=== PATIENT | female | born 1945 | race Caucasian/White ===

== ENCOUNTER → 2017-11-23 08:23 | Outpatient (CLI) | payer MEDICARE, SELFPAY ==
[2017-11-23 08:43] LABS: Red Blood Count 4.74 M/mm3 (4.20-5.40); White Blood Count 6.2 K/mm3 (4.8-10.8)
[2017-11-23 08:44] LABS: Basophils % 0.6 % (0.1-2.0); Eosinophils # 0.1 K/mm3 (0.0-0.4); Hematocrit 39.4 % (37.0-47.0); Lymphocytes % 34.5 K/mm3 (10-50); Mean Corpuscular HGB Conc 30.5 g/dL (31.8-35.4); Mean Corpuscular Hemoglobin 25.3 pg (27.0-31.2); Mean Corpuscular Volume 83.1 fl (81-99); Mean Platelet Volume 8.3 fl (7.4-10.4); Monocytes # 0.4 K/mm3 (0.1-1.0); Neutrophils # 3.5 K/mm3 (1.8-7.8); Neutrophils % 55.9 % (37.0-80.0); Platelet Count 253 K/mm3 (142-424); Red Cell Distribution Width 14.3 % (11.5-17.5)
[2017-11-23 10:26] LABS: Anion Gap 12.1 mEq/L (5-15); Blood Urea Nitrogen 25 mg/dL (7-18); Carbon Dioxide 29 mmol/L (21.0-32.0); Chloride 106 mmol/L (98-107); Creatinine,Serum 0.79 mg/dL (0.55-1.02); Estimated Glomerular Filt Rate 71 ml/min (>60); GFR (African American) 86 ML/MIN (>60); Glucose 117 mg/dL (74-106); Potassium 4.1 mmoL/L (3.5-5.1); Sodium 143 mmol/L (136-145)
== END ==
PROVIDERS: PCP Physician Assistant; Visit Provider Otolaryngology
DX: Z01.818 Encounter for other preprocedural examination (principal); C76.0 Malignant neoplasm of head, face and neck
CPT/HCPCS: 36415; 80048; 85025; 93005

== ENCOUNTER 2017-11-30 07:59 | Day surgery (SDC) | payer MEDICARE, SELFPAY ==
[2017-11-23 08:53] VITALS: BMI 36.9
[2017-11-30 08:32] VITALS: BP 155/73; PULSE 62; RESP 18; TEMP 36.4; O2SAT 94
--- NOTE | 2017-11-30 08:36 | HMH.ANESCL ---
[facility] Anesthesia Checklist - Patient Identification Patient Identification: Arm Band - Structural Data Admitted From: Home Planned Operative Procedure/s: excision neoplasm nose Consent for Planned Operative Procedure(s) Verified: Yes Verified Documents: Surgical Consent, History and Physical - NPO Status Verified Time NPO: 00:00 - Additional verifications Anesthesia Reactions: No - Airway Assessment C-Spine Mobility Assessed: Yes (mp2) TMJ Mobility Assessed: Yes Dentition: Good Dentition - Neurological Assessment Level of Consciousness: Awake, Alert - Anesthesia Plan Anesthesia Risk discussed: Yes Anesthesia Plan: Verified ASA Class: II Anesthesia Type: MAC [facility] Anesthesia HX I have reviewed the patient's past medical history: Yes Medical History: Reports:: Hypertension Denies:: Cancer, Diabetes Mellitus Type 1, Diabetes Mellitus Type 2, MRSA, Seizures Other Medical History: Reports: Hypothyroidism. Denies: Blood Transfusion Reaction Other Surgeries: Yes: Colonoscopy, Hysterectomy-Total Amputation: No Fractures: No *Family Hx:: Asthma, Hypertension
--- NOTE | 2017-11-30 08:41 | P.PN_ITS ---
[facility] Anesthesia Checklist - Patient Identification Patient Identification: Arm Band - Structural Data Admitted From: Home Planned Operative Procedure/s: excision neoplasm nose Consent for Planned Operative Procedure(s) Verified: Yes Verified Documents: Surgical Consent, History and Physical - NPO Status Verified Time NPO: 00:00 - Additional verifications Anesthesia Reactions: No - Airway Assessment C-Spine Mobility Assessed: Yes (mp2) TMJ Mobility Assessed: Yes Dentition: Good Dentition - Neurological Assessment Level of Consciousness: Awake, Alert - Anesthesia Plan Anesthesia Risk discussed: Yes Anesthesia Plan: Verified ASA Class: II Anesthesia Type: MAC [facility] Anesthesia HX I have reviewed the patient's past medical history: Yes Medical History: Reports:: Hypertension Denies:: Cancer, Diabetes Mellitus Type 1, Diabetes Mellitus Type 2, MRSA, Seizures Other Medical History: Reports: Hypothyroidism. Denies: Blood Transfusion Reaction Other Surgeries: Yes: Colonoscopy, Hysterectomy-Total Amputation: No Fractures: No *Family Hx:: Asthma, Hypertension
[2017-11-30 11:06] VITALS: BP 128/82; PULSE 60; RESP 18; TEMP 37.1; O2SAT 91
[2017-11-30 11:11] VITALS: BP 148/82; PULSE 62; RESP 18; O2SAT 91
[2017-11-30 11:13] VITALS: BP 138/73; PULSE 63; RESP 18; O2SAT 91
--- NOTE | 2017-11-30 17:27 | HMH.OPNOTE ---
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 The perilesional area was infiltrated with 2 cc of 2% lidocaine containing epinephrine. The markup was incised and the lesion was excised to the level of the lower lateral cartilage. Bleeding was stopped with bipolar cautery blood loss was less than 5 cc. An inferior and superior release was done to facilitate a tissue rearrangement geometric plastic repair using 5-0 nylon sutures. A Dermabond dressing was applied. Condition: stable Disposition: same day Complications:: none
--- NOTE | 2017-11-30 17:30 | P.OP_ITS ---
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 The perilesional area was infiltrated with 2 cc of 2% lidocaine containing epinephrine. The markup was incised and the lesion was excised to the level of the lower lateral cartilage. Bleeding was stopped with bipolar cautery blood loss was less than 5 cc. An inferior and superior release was done to facilitate a tissue rearrangement geometric plastic repair using 5-0 nylon sutures. A Dermabond dressing was applied. Condition: stable Disposition: same day Complications:: none
== END 2017-11-30 09:45 | disposition home or self-care (01) ==
LOC: OR 08:01
PROVIDERS: Family Provider Emergency Medicine; PCP Physician Assistant; Visit Provider Otolaryngology
DX: C44.301 Unspecified malignant neoplasm of skin of nose (principal)
CPT/HCPCS: 14060; 88305; 96374; 96375

== ENCOUNTER → 2018-04-18 08:40 | Outpatient (REF) | payer MEDICARE, SELFPAY ==
[2018-04-18 13:36] LABS: Basophils % 0.6 % (0.1-2.0); Eosinophils # 0.2 K/mm3 (0.0-0.4); Eosinophils % 2.6 % (0.1-12.0); Hematocrit 39.5 % (37.0-47.0); Hemoglobin 11.2 g/dL (12.2-16.2); Lymphocytes # 1.8 K/mm3 (0.7-4.5); Lymphocytes % 30.5 K/mm3 (10-50); Mean Corpuscular HGB Conc 28.4 g/dL (31.8-35.4); Mean Corpuscular Hemoglobin 23.6 pg (27.0-31.2); Mean Corpuscular Volume 83.2 fl (81-99); Mean Platelet Volume 9.2 fl (7.4-10.4); Monocytes # 0.5 K/mm3 (0.1-1.0); Monocytes % 7.6 % (1.7-9.3); Neutrophils # 3.5 K/mm3 (1.8-7.8); Neutrophils % 58.7 % (37.0-80.0); Platelet Count 296 K/mm3 (142-424); Red Blood Count 4.74 M/mm3 (4.20-5.40); Red Cell Distribution Width 15.2 % (11.5-17.5); White Blood Count 5.9 K/mm3 (4.8-10.8)
[2018-04-18 14:01] LABS: Alanine Aminotransferase 61 U/L (12-78); Albumin Level 3.8 gm/dL (3.4-5.0); Albumin/Globulin Ratio 1.1 (1.1-1.8); Alkaline Phosphatase 46 U/L (46-116); Anion Gap 12.3 mEq/L (5-15); Aspartate Amino Transferase 43 U/L (15-37); Bilirubin,Total 0.5 mg/dL (0.2-1.0); Blood Urea Nitrogen 25 mg/dL (7-18); Carbon Dioxide 28 mmol/L (21.0-32.0); Chloride 107 mmol/L (98-107); Creatinine,Serum 0.83 mg/dL (0.55-1.02); Estimated Glomerular Filt Rate 67 ml/min (>60); GFR (African American) 81 ML/MIN (>60); Globulin 3.4 gm/dl (1.3-3.2); Glucose 132 mg/dL (74-106); Potassium 4.3 mmoL/L (3.5-5.1); Sodium 143 mmol/L (136-145); T4 (Thyroxine) 9.6 ug/dl (4.7-13.3); Thyroid Stimulating Hormone 0.43 uIU/ml (0.358-3.740); Total Protein,Serum 7.2 gm/dL (6.4-8.2)
== END ==
LOC: LAB 08:40
PROVIDERS: Visit Provider Physician Assistant
DX: R32 Unspecified urinary incontinence (principal); R53.83 Other fatigue
CPT/HCPCS: 80053; 84436; 84443; 85025

== ENCOUNTER → 2018-07-23 13:00 | Outpatient (CLI) | payer MEDICARE, SELFPAY ==
[2018-07-23 13:37] LABS: Basophils % 0.5 % (0.1-2.0); Eosinophils # 0.1 K/mm3 (0.0-0.4); Eosinophils % 1.8 % (0.1-12.0); Hemoglobin 10.9 g/dL (12.2-16.2); Lymphocytes # 1.9 K/mm3 (0.7-4.5); Lymphocytes % 29.6 K/mm3 (10-50); Mean Corpuscular HGB Conc 29.3 g/dL (31.8-35.4); Mean Corpuscular Hemoglobin 23.9 pg (27.0-31.2); Mean Corpuscular Volume 81.6 fl (81-99); Mean Platelet Volume 7.9 fl (7.4-10.4); Monocytes # 0.5 K/mm3 (0.1-1.0); Monocytes % 7.2 % (1.7-9.3); Neutrophils # 3.9 K/mm3 (1.8-7.8); Platelet Count 321 K/mm3 (142-424); Red Blood Count 4.53 M/mm3 (4.20-5.40); Red Cell Distribution Width 16.9 % (11.5-17.5); White Blood Count 6.3 K/mm3 (4.8-10.8)
[2018-07-23 14:40] LABS: Ferritin 22 ng/mL (8-388)
[2018-07-24 08:25] LABS: Iron 27 ug/dL (27-139); UIBC 361 ug/dL (118-369)
[2018-07-24 13:56] LABS: Iron Saturation 7 % (15-55)
[2018-07-25 13:05] LABS: Peripheral Smear Review Scanned Result
== END ==
PROVIDERS: PCP Physician Assistant; Visit Provider Physician Assistant
DX: D50.9 Iron deficiency anemia, unspecified (principal); R53.83 Other fatigue
CPT/HCPCS: 36415; 82728; 83540; 83550; 85025; 85060

== ENCOUNTER → 2018-10-25 12:13 | Outpatient (CLI) | payer MEDICARE, SELFPAY ==
--- NOTE | 2018-10-25 12:18 | XR_ITS ---
EXAM: XR lumbar spine min 4V HISTORY: ITS.REASON: pain ORDERING PHYSICIAN: Morelia Merritt PATIENT AGE: 73 years COMPARISON: None FINDINGS: There is slightly accentuated lordotic curvature at the lumbosacral junction. A line drawn perpendicular from the body of L3 falls anterior to the sacrum and this is a finding combined with the lordotic curvature suggesting possible instability of the lower lumbar spine. No fracture or dislocation. No lytic or blastic change. Is mild multilevel degenerative changes with disc space narrowing at all levels lumbar spine.. There is minimal posterior osteophytic spurring at the L 34 and L4-5 levels. There is no pars defect. There are hypertrophic facet changes at levels L3-4 through L5-S1 IMPRESSION: Accentuated lumbar lordosis with mild to moderate multilevel degenerative changes
[2018-10-25 15:06] LABS: Erythrocyte Sedimentation Rate 7 mm/hr (0-30)
[2018-10-25 15:12] LABS: C-Reactive Protein < 0.2 mg/L (0.0-0.9)
== END ==
PROVIDERS: PCP Emergency Medicine; Visit Provider Nurse Practitioner Family
DX: M54.9 Dorsalgia, unspecified (principal)
CPT/HCPCS: 36415; 72110; 85651; 86140

== ENCOUNTER 2018-11-04 08:45 | Outpatient (RCR) | payer MEDICARE, SELFPAY ==
--- NOTE | 2018-11-04 09:43 | HMH.PTOPEV ---
PT Outpatient Evaluation Rehab PT Outpatient Evaluation Start: 11/04/18 09:30 Freq: Status: Active Protocol: Document 11/04/18 09:30 OLVINANGIE (Rec: 11/04/18 09:43 OLVINANGIE [id number]) Electronically Signed By Sher Holland, PT 11/04/18 09:30 Outpatient Therapy Subjective History Subjective History This is the initial Physical Therapy evaluation for Jeannette Mendoza. Pt is a 73 y/o female referred to PT for c/o BLE pain. Pt reports insidious onset of pain ~ 2-3 weeks ago. Pt reprots that pain is usually in the evening when she tries to go to bed. Pt reports she had steroid shot and pain shot ~ 9 days ago and has been S&S free since. Pt Did report she was limited in activity by MD for surgical precautions for ~ 5 weeks and was recently released to full activity and this is when pain began. Chief Complaint Pain Symptom Type Ache Throb Symptoms Relieved By Nothing Symptoms Aggravated By Prone Supine Prior Functional Limitations None Current Functional Limitations Sleeping Symptom Description Intermittent Level of pain today (0-10) 0 Pain scale - at its best (0-10) 0 Pain scale - at its worst (0-10) 8 Lumbopelvic Eval Posture Thoracic Spine Posture Standing Position Flattened Lumbar Spine Posture Standing Position Flattened Assistive device Assistive Devices None / NA Gait Observation General Gait Pattern Observation No Deviations/Normal Palapation tenderness bilateral thoracic spinal tenderness No lumbar spinal tenderness No paraspinal tenderness No buttock tenderness No Lumbar/Sacral Palpation Findings None/Normal Lumbar/Sacral Palpation Overall Comment No noted TTP Range of Motion Lumbar Spine ROM Reason Not Measured Within Functional Limits Special Tests Lumbar Spine Screen Negative Forward Bending Test- Sitting Negative Left Negative Right Sciatic Nerve Tension Test Negative Left Negative Right Unilateral Straight Leg Raise (Lasegue) Negative Left Test Negative Right Lumbar Spine Spring Test noted decrease in PIVM but no c/o pain Sacroiliac Joint
== END 2018-11-04 08:50 | disposition home or self-care (01) ==
LOC: PT 08:45
PROVIDERS: Visit Provider Nurse Practitioner Family
DX: M79.606 Pain in leg, unspecified (principal); M54.5 Low back pain
CPT/HCPCS: 97110; 97163

== ENCOUNTER → 2018-11-04 09:36 | Outpatient (CLI) | payer MEDICARE, SELFPAY ==
[2018-11-04 09:49] LABS: Basophils % 0.3 % (0.1-2.0); Eosinophils # 0.1 K/mm3 (0.0-0.4); Eosinophils % 1.7 % (0.1-12.0); Hematocrit 43.6 % (37.0-47.0); Hemoglobin 13.3 g/dL (12.2-16.2); Lymphocytes # 1.9 K/mm3 (0.7-4.5); Lymphocytes % 29.4 % (10-50); Mean Corpuscular HGB Conc 30.4 g/dL (31.8-35.4); Mean Corpuscular Hemoglobin 26.5 pg (27.0-31.2); Mean Corpuscular Volume 87.2 fl (81-99); Mean Platelet Volume 8.8 fl (7.4-10.4); Monocytes # 0.5 K/mm3 (0.1-1.0); Monocytes % 7.6 % (1.7-9.3); Neutrophils # 3.9 K/mm3 (1.8-7.8); Neutrophils % 60.8 % (37.0-80.0); Platelet Count 245 K/mm3 (142-424); Red Cell Distribution Width 18.3 % (11.5-17.5); White Blood Count 6.4 K/mm3 (4.8-10.8)
[2018-11-04 11:01] LABS: Alanine Aminotransferase 45 U/L (12-78); Albumin Level 3.7 gm/dL (3.4-5.0); Albumin/Globulin Ratio 1.1 (1.1-1.8); Alkaline Phosphatase 47 U/L (46-116); Anion Gap 13.4 mEq/L (5-15); Aspartate Amino Transferase 30 U/L (15-37); Bilirubin,Total 0.5 mg/dL (0.2-1.0); Blood Urea Nitrogen 24 mg/dL (7-18); Calcium 9.6 mg/dL (8.5-10.1); Carbon Dioxide 30 mmol/L (21.0-32.0); Chloride 105 mmol/L (98-107); Creatinine,Serum 0.87 mg/dL (0.55-1.02); Estimated Glomerular Filt Rate 63 ml/min (>60); GFR (African American) 77 ML/MIN (>60); Globulin 3.3 gm/dl (1.3-3.2); Glucose 103 mg/dL (74-106); Potassium 4.4 mmoL/L (3.5-5.1); Sodium 144 mmol/L (136-145); Thyroid Stimulating Hormone 0.11 uIU/ml (0.358-3.740)
[2018-11-05 06:14] LABS: Iron 156 ug/dL (27-139); UIBC 153 ug/dL (118-369)
[2018-11-05 07:05] LABS: Iron Saturation 50 % (15-55)
== END ==
PROVIDERS: Visit Provider Physician Assistant
DX: R53.1 Weakness (principal)
CPT/HCPCS: 36415; 80053; 83540; 83550; 84443; 85025

== ENCOUNTER → 2018-12-02 14:19 | Outpatient (POV) | payer MEDICARE, SELFPAY | PROVIDERS: Visit Provider Specialist | DX: M79.604 Pain in right leg (principal); M79.605 Pain in left leg; M54.9 Dorsalgia, unspecified | CPT/HCPCS: 95886; 95908 ==

== ENCOUNTER → 2019-04-29 08:43 | Outpatient (CLI) | payer MEDICARE, SELFPAY ==
--- NOTE | 2019-04-29 08:49 | XR_ITS ---
XR hand LT min 3V HISTORY: ITS.REASON: Knot left ring finger PIP joint ORDERING PHYSICIAN: SIRIA Monterroso PATIENT AGE: 74 years COMPARISON: None FINDINGS: Bone density is normal. There is generalized narrowing of all of the interphalangeal joints and there is severe narrowing with spurring at the first carpal/metacarpal joint. There is a 1 mm round punctate radiopaque density related to the skin surface posteriorly at the level of the PIP joint of the fourth digit. Patient has a metallic ring which obscures the mid shaft of the fourth digit proximal phalanx. Soft tissues are unremarkable. Impression: Osteoarthritis as described which is worse at the first carpal/metacarpal joint. No acute process. Punctate density which is nonspecific related to the skin surface posteriorly involving the fourth digit as discussed above.
--- NOTE | 2019-04-29 08:49 | XR_ITS ---
XR wrist RT min 3V CLINICAL INDICATION: ITS.REASON: Right wrist pain ORDERING PHYSICIAN: SIRIA Monterroso PATIENT AGE: 74 years Comparison: None FINDINGS: Bone density appears normal. There is severe narrowing of the first carpal/metacarpal joint with spurring. There is no acute fracture. Soft tissues are unremarkable. IMPRESSION: No acute process. First carpal/metacarpal joint osteoarthritis.
== END ==
PROVIDERS: PCP Emergency Medicine; Visit Provider Physician Assistant
DX: M79.642 Pain in left hand (principal); M25.531 Pain in right wrist
CPT/HCPCS: 73110; 73130

== ENCOUNTER → 2020-07-05 14:14 | Outpatient (CLI) | payer MEDICARE, SELFPAY ==
[2020-07-05 14:27] LABS: Chloride 106 mmol/L (98-107); Potassium 4.2 mmoL/L (3.5-5.1); Sodium 142 mmol/L (136-145)
[2020-07-05 14:30] LABS: Alanine Aminotransferase 26 U/L (12-78); Albumin Level 3.9 g/dl (3.5-5.0); Albumin/Globulin Ratio 1.6 (1.1-1.8); Alkaline Phosphatase 41 U/L (38-126); Anion Gap 13.2 mEq/L (5-15); Aspartate Amino Transferase 29 U/L (14-36); Bilirubin,Total 0.5 mg/dl (0.2-1.3); Blood Urea Nitrogen 20 mg/dl (7-17); Calcium 9.6 mg/dl (8.4-10.2); Carbon Dioxide 27 mmol/L (22.0-30.0); Estimated Glomerular Filt Rate 81 ml/min (>60); GFR (African American) 98 ML/MIN (>60); Globulin 2.5 g/dL (1.3-3.2); Glucose 112 mg/dl (74-100); Iron 120 ug/dL (37-170); Total Protein,Serum 6.4 g/dl (6.3-8.2)
[2020-07-05 14:35] LABS: Basophils % 0.5 % (0.1-2.0); Eosinophils # 0.1 K/mm3 (0.0-0.4); Eosinophils % 1.9 % (0.1-12.0); Hematocrit 43.8 % (37.0-47.0); Hemoglobin 13.7 g/dL (12.2-16.2); Lymphocytes # 1.5 K/mm3 (0.7-4.5); Mean Corpuscular HGB Conc 31.2 g/dL (31.8-35.4); Mean Corpuscular Hemoglobin 29.3 pg (27.0-31.2); Mean Platelet Volume 9.9 fl (7.4-10.4); Monocytes # 0.5 K/mm3 (0.1-1.0); Monocytes % 7.4 % (1.7-9.3); Neutrophils # 4.2 K/mm3 (1.8-7.8); Neutrophils % 66.1 % (37.0-80.0); Platelet Count 237 K/mm3 (142-424); Red Blood Count 4.66 M/mm3 (4.20-5.40); Red Cell Distribution Width 13.6 % (11.5-17.5); White Blood Count 6.3 K/mm3 (4.8-10.8)
[2020-07-05 14:47] LABS: T4 (Thyroxine) 10.7 ug/dl (5.53-11.0)
[2020-07-05 15:01] LABS: Thyroid Stimulating Hormone 0.25 uIU/mL (0.465-4.68)
== END ==
PROVIDERS: Visit Provider Physician Assistant
DX: D64.9 Anemia, unspecified (principal); R53.83 Other fatigue; S01.81XA Laceration without foreign body of other part of head, initial encounter
CPT/HCPCS: 80053; 83540; 84436; 84443; 85025

== ENCOUNTER → 2020-07-15 12:51 | Outpatient (POV) | payer MEDICARE, SELFPAY ==
[2020-07-15 13:17] VITALS: BP 132/88; PULSE 75; RESP 18; O2SAT 98; BMI 35.0
--- NOTE | 2020-07-15 13:37 | HMH.PMCON ---
Assessment and Plan (1) Left hip pain Status: Chronic Category: Medical Code(s): M25.552 - Pain in left hip (2) Sacroiliitis Status: Chronic Category: Medical Code(s): M46.1 - Sacroiliitis, not elsewhere classified (3) Trochanteric bursitis Status: Chronic Category: Medical Code(s): M70.60 - Trochanteric bursitis, unspecified hip - Assessment and plan all Dx Assessment and Plan for all problems:: Patient does have notable tenderness over left SI joint as well as her trochanteric bursa. We will schedule her for a left SI joint injection as well as a left trochanteric bursa injection. We will see her back in the clinic afterwards to reassess her symptoms. She has been instructed to contact clinic if she has any concerns before her next appointment. The patient and I specifically discussed risk factors for COVID19. These risks include, but are not limited to age greater than 60, heart or lung disease, diabetes, immunosuppression, and travel. We also discussed NSAIDs may worsen COVID19 infection or symptoms. Patient should not use NSAIDs to treat COVID19 signs or symptoms. Patient was also informed that any type of corticosteroid of any form (oral or injection) will decrease the patient's immune system response and may increase the likelihood of COVID19 infection and symptoms[address] Dr. Durham has reviewed this note and agrees with this plan of care. This note was dictated using voice recognition software and make contain errors or omissions. HPI - Data of Consult Patient: new to practice Consult date: 07/15/20 Requesting Physician: Allison Goss APRN Primary Care Provider: SIRIA Monterroso - Consult Narrative Reason for consult: Left hip pain, left groin pain, left lateral thigh pain History of present illness: Ms. Connelly is a 75 year old female who presents today for consultation for left hip pain, left groin pain, left lateral thigh pain. Patient says this is been ongoing for intermittently a year. She says that it is progressively worsened over the last few months. She did undergo injections and her primary care provider's office for which she did get relief initially, however, with her second injection, she says she did not get any relief. Patient says she does a lot of weed eating and housework . She says this is when her pain is at its worst. She says that anti-inflammatories have been beneficial for her pain. She does rate her pain a 6 out of 10. It does improve with sitting. Patient does report to be having some intermittent left foot numbness as well. Patient does a home stretching program as well as ice and heat therapies. CC: Allison Goss APRN [facility] History I have reviewed the patient's past medical history: Yes Medical History: Reports:: Hypertension Denies:: Cancer, Diabetes Mellitus Type 1, Diabetes Mellitus Type 2, Internal Pacemaker, Lung Disease, MRSA, Seizures *Have you ever received a pneumonia vaccine?: No *Have you received a flu vaccine this season?: No Other Medical History: Reports: Arthritis, Hypothyroidism, Thyroid Disease. Denies: Blood Transfusion Reaction Other Surgeries: Yes: Colonoscopy, Hysterectomy-Total. No: Pacemaker Amputation: No Fractures: No - *Social History Smoking Status: Never smoker Alcohol Intake: never Alcohol Intake Frequency:: other Substance Use Type: denies use *Occupational Status:: other Housing: house Household Members: other *Travel in the last 8 weeks: None Family Hx:: Unable to obtain Review of Systems - Review of Systems Review of Systems General: No recent weight changes, no fever, no sleep disturbances Respiratory: No cough, no shortness of air, no recurring pulmonary infections Cardiovascular/peripheral vascular: No chest pain, no palpitations, no edema, no shortness of breath Gastrointestinal: No new onset incontinence, normal bowel movements reported Genitourinary: No new onset incontinence Musculoskel
== END ==
PROVIDERS: PCP Physician Assistant; Visit Provider Clinical Nurse Specialist Family Health
DX: M25.552 Pain in left hip (principal); M46.1 Sacroiliitis, not elsewhere classified; M70.60 Trochanteric bursitis, unspecified hip
CPT/HCPCS: 99202

== ENCOUNTER 2020-07-23 10:44 | Day surgery (SDC) | payer MEDICARE, SELFPAY ==
[2020-07-23 11:07] VITALS: BP 155/77; PULSE 65; RESP 18; TEMP 36.7; O2SAT 93; BMI 35.0
[2020-07-23 11:24] VITALS: BP 142/77; PULSE 85
[2020-07-23 11:25] VITALS: BP 148/89; PULSE 85; RESP 18; O2SAT 98
--- NOTE | 2020-07-23 11:27 | P.PCN_ITS ---
- Procedure Date: 07/23/20 Time: 11:27 Anesthesiologist:: Shamir Durham MD Complications:: None Pre-procedure Diagnosis:: Sacroiliitis and trochanteric bursitis Post-procedure Diagnosis:: Same Indications for Procedure:: This patient is a pleasant 75-year-old white female who we are treating for left-sided hip pain. She is tender over the left SI joint. She is also tender over the left trochanteric bursa. She has a positive Issa's test on left side. She has positive SI joint compression test on left side. We will do a left SI joint injection under fluoroscopy as well as the left trochanteric bursa injection under fluoroscopy to see if this helps with her pain symptoms. Procedure Details:: Left SI joint injection under fluoroscopy Informed consent was obtained and the risks and benefits of the procedure was explained to the patient. Patient was taken to the procedure room. Patient was placed prone on the procedure table. The left hip was prepped using ChloraPrep. The skin and subcutaneous tissues were anesthetized using lidocaine. I placed a 22-gauge spinal needle into the inferior aspect of the left SI joint. Needle placement was confirmed with dye. After this we injected 5 mL bupivacaine 0.25% and Depo-Medrol 40 mg into the left SI joint. The patient tolerated the procedure well with no complication. Left trochanteric bursa injection under fluoroscopy informed consent was obtained and the risk and benefits of the procedure was explained to the patient. The patient was taken to procedure room and placed prone on the procedure table. The left hip was prepped using ChloraPrep. The skin and subcutaneous tissues were anesthetized using lidocaine. I placed a 22- gauge spinal needle under fluoroscopic guidance and advanced until it contacted the left greater trochanter. Needle placement was confirmed with dye. After this we injected 5 mL bupivacaine 0.25% and Depo-Medrol 40 mg. Patient tolerated the procedure well with no complications. Plan and Disposition:: We will follow-up with her in 2 weeks. Will reevaluate symptoms at that time.
[2020-07-23 11:35] VITALS: BP 156/76; PULSE 59; RESP 18; O2SAT 94
== END 2020-07-23 11:37 | disposition home or self-care (01) ==
LOC: SC.PAINP 10:46
PROVIDERS: PCP Physician Assistant; Visit Provider Anesthesiology
DX: M46.1 Sacroiliitis, not elsewhere classified (principal); M70.61 Trochanteric bursitis, right hip; I10 Essential (primary) hypertension; E07.9 Disorder of thyroid, unspecified; Z79.899 Other long term (current) drug therapy
CPT/HCPCS: 20610; 27096; 77002; G0260; J1030; Q9966

== ENCOUNTER → 2020-08-19 09:39 | Outpatient (POV) | payer MEDICARE, SELFPAY ==
[2020-08-19 10:32] VITALS: BP 138/62; PULSE 54; RESP 18; TEMP 36.8; O2SAT 98; BMI 35.0
--- NOTE | 2020-08-22 13:46 | P.CONS_ITS ---
[facility] Pain Management SOAP Note Subjective:: Patient is a pleasant 75-year-old white female who presents today for follow-up after her left SI joint injection left greater trochanteric bursa injection. Patient's had significant relief getting over 80% relief of her symptomology. Patient overall doing much better. She does have a still have a positive Issa's test SI joint compression test Katie test and distraction test on the left side. She is interested in repeating the left SI joint injection given the efficacy of it in the gradual return of her pain. She rates her pain today a 4 out of 10 ROS General: no recent weight change, no fever, no sleep disturbances Respiratory: no cough, no shortness of air, no recurring pulmonary infections Cardiovascular/Peripheral Vascular: No chest pain, No palpitations, no edema, no shortness of breath. Gastrointestinal: no new onset incontinence, normal bowel movements reported Genitourinary: no new onset incontinence Musculoskeletal: Left SI joint pain Psychiatric: normal mood/ affect Neurological: [denies new onset weakness in extremities], [denies new onset balance issues] Objective:: Physical Exam General: Alert and oriented x3, no acute distress, pleasant and cooperative, [on room air] Lungs: Resps E/U, Symmetrical chest expansion, Eyes: PERRL Musculoskeletal: Flexion and extension of lumbar spine somewhat guarded secondary to pain, deep tendon reflexes normal, strength in upper and lower extremities [5/5], slightly antalgic gait noted Neurological: speech clear, dispatcher motor vehicle equal, no gross sensory deficits Assessment:: Sacroiliitis Plan:: We will schedule the patient for a left SI joint injection. Given the efficacy of this in the past and her gradual return of her pain I do believe this would benefit her. We will follow up with her afterwards reassess her symptoms at at time she has been instructed to call the office if she has any issues prior to her next appointment. Dr. Durham has reviewed this note and agrees with this plan of care. This note was dictated using voice recognition software and may contain errors or omissions [facility] History I have reviewed the patient's past medical history: Yes Medical History: Reports:: Cancer (skin), Hypertension Denies:: Diabetes Mellitus Type 1, Diabetes Mellitus Type 2, Internal Pacemaker, Lung Disease, MRSA, Seizures *Have you ever received a pneumonia vaccine?: No *Have you received a flu vaccine this season?: No Other Medical History: Reports: Arthritis, Hypothyroidism, Thyroid Disease. Denies: Blood Transfusion Reaction Other Surgeries: Yes: Colonoscopy, Hysterectomy-Total. No: Pacemaker Amputation: No Fractures: No - *Social History Smoking Status: Never smoker Alcohol Intake: never Alcohol Intake Frequency:: other Substance Use Type: denies use *Occupational Status:: other Housing: house Household Members: spouse *Travel in the last 8 weeks: None Family Hx:: Unable to obtain
== END ==
PROVIDERS: PCP Physician Assistant; Visit Provider Clinical Nurse Specialist Family Health
DX: M46.1 Sacroiliitis, not elsewhere classified (principal)
CPT/HCPCS: 99212

== ENCOUNTER 2020-08-27 09:07 | Day surgery (SDC) | payer MEDICARE, SELFPAY ==
[2020-08-27 09:33] VITALS: BP 127/54; PULSE 56; RESP 18; TEMP 36.5; O2SAT 96; BMI 34.0
[2020-08-27 09:58] VITALS: BP 152/78; PULSE 89; RESP 18
[2020-08-27 09:59] VITALS: BP 148/78; PULSE 85; RESP 18; O2SAT 98
[2020-08-27 10:24] VITALS: BP 150/62; PULSE 54; RESP 18; O2SAT 96
--- NOTE | 2020-08-27 11:09 | HMH.PMPROC ---
- Procedure Date: 08/27/20 Time: 11:09 Anesthesiologist:: Shamir Durham MD Complications:: None Pre-procedure Diagnosis:: Sacroiliitis Post-procedure Diagnosis:: Same Indications for Procedure:: Patient is a pleasant 75-year-old white female who we have been treating for left-sided hip pain. She did have a left SI joint injection left trochanteric bursa injection at her last visit which gave her 80% relief of her pain symptoms. Her pain is starting to return over her left SI joint. She has a positive Issa's test on left side. She has positive SI joint compression test on the left side. She has a positive Katie test on left side. She has a positive distraction test on left side. We will do a repeat left SI joint injection under fluoroscopy today to help her with her returning pain symptoms. Procedure Details:: Left SI joint injection under fluoroscopy Informed consent was obtained and the risks and benefits of the procedure was explained to the patient. Patient was taken to the procedure room. Patient was placed prone on the procedure table. The left hip was prepped using ChloraPrep. The skin and subcutaneous tissues were anesthetized using lidocaine. I placed a 22-gauge spinal needle into the inferior aspect of the left SI joint. Needle placement was confirmed with dye. After this we injected 5 mL bupivacaine 0.25% and Depo-Medrol 40 mg into the left SI joint. The patient tolerated the procedure well with no complication. Plan and Disposition:: We will follow-up with her in 2 weeks. Will reevaluate symptoms at that time. If she does not get 3 to 4 months relief from these injections she may be a candidate for SI joint stabilization.
== END 2020-08-27 10:24 | disposition home or self-care (01) ==
LOC: SC.PAINP 09:09
PROVIDERS: PCP Physician Assistant; Visit Provider Anesthesiology
DX: M46.1 Sacroiliitis, not elsewhere classified (principal); I10 Essential (primary) hypertension; E03.9 Hypothyroidism, unspecified
CPT/HCPCS: 27096; G0260; J1040; Q9966

== ENCOUNTER → 2020-09-20 11:05 | Outpatient (POV) | payer MEDICARE, SELFPAY ==
--- NOTE | 2020-09-20 11:22 | HMH.PAINSOAP ---
[facility] Pain Management SOAP Note Subjective:: Patient is a pleasant 75-year-old white female who we are treating for left-sided hip pain. Patient had a left SI joint injection she is rating her pain today a 0 out of 10 she is had 100% relief of her symptomology. She would like to follow-up at an as-needed basis. ROS General: no recent weight change, no fever, no sleep disturbances Respiratory: no cough, no shortness of air, no recurring pulmonary infections Cardiovascular/Peripheral Vascular: No chest pain, No palpitations, no edema, no shortness of breath. Gastrointestinal: no new onset incontinence, normal bowel movements reported Genitourinary: no new onset incontinence Musculoskeletal: SI joint pain at the times Psychiatric: normal mood/ affect Neurological: [denies new onset weakness in extremities], [denies new onset balance issues] Objective:: Physical Exam General: Alert and oriented x3, no acute distress, pleasant and cooperative, [on room air] Lungs: Resps E/U, Symmetrical chest expansion, Eyes: PERRL Musculoskeletal: Flexion and extension of lumbar spine somewhat guarded secondary to pain, deep tendon reflexes normal, strength in upper and lower extremities [5/5], [abnormal gait noted] Neurological: speech clear, plastic technician equal, no gross sensory deficits Assessment:: Sacroiliitis Plan:: We will see the patient back on an as-needed basis she has been instructed to call the office if she has any issues prior to her next appointment. Dr. Durham has reviewed this note and agrees with this plan of care. This note was dictated using voice recognition software and may contain errors or omissions [facility] History I have reviewed the patient's past medical history: Yes Medical History: Reports:: Hypertension Denies:: Cancer, Diabetes Mellitus Type 1, Diabetes Mellitus Type 2, Internal Pacemaker, Lung Disease, MRSA, Seizures *Have you ever received a pneumonia vaccine?: No *Have you received a flu vaccine this season?: No Other Medical History: Reports: Arthritis, Hypothyroidism, Thyroid Disease. Denies: Blood Transfusion Reaction Other Surgeries: Yes: Colonoscopy, Hysterectomy-Total, Other (skin ca from nose). No: Pacemaker Amputation: No Fractures: No - *Social History Smoking Status: Never smoker Alcohol Intake: never Alcohol Intake Frequency:: other Substance Use Type: denies use *Occupational Status:: retired Housing: house Household Members: spouse *Travel in the last 8 weeks: None Family Hx:: Unable to obtain
[2020-09-20 11:41] VITALS: BP 133/74; PULSE 74; RESP 18; O2SAT 98; BMI 35.0
== END ==
PROVIDERS: PCP Physician Assistant; Visit Provider Clinical Nurse Specialist Family Health
DX: M46.1 Sacroiliitis, not elsewhere classified (principal); R53.83 Other fatigue; M25.552 Pain in left hip
CPT/HCPCS: 82728; 83540; 83550; 85025; 99212

== ENCOUNTER → 2020-09-20 18:37 | Outpatient (CLI) | payer MEDICARE, SELFPAY ==
[2020-09-20 19:11] LABS: Basophils # 0.1 K/mm3 (0-0.2); Basophils % 0.8 % (0.1-2.0); Eosinophils # 0.2 K/mm3 (0.0-0.4); Eosinophils % 2.2 % (0.1-12.0); Hematocrit 45.3 % (37.0-47.0); Hemoglobin 14.7 g/dL (12.2-16.2); Lymphocytes # 1.8 K/mm3 (0.7-4.5); Mean Corpuscular HGB Conc 32.4 g/dL (31.8-35.4); Mean Corpuscular Hemoglobin 30.7 pg (27.0-31.2); Mean Corpuscular Volume 94.6 fl (81-99); Mean Platelet Volume 9.2 fl (7.4-10.4); Monocytes # 0.5 K/mm3 (0.1-1.0); Monocytes % 6.7 % (1.7-9.3); Neutrophils % 66.3 % (37.0-80.0); Platelet Count 254 K/mm3 (142-424); Red Blood Count 4.79 M/mm3 (4.20-5.40); Red Cell Distribution Width 14.2 % (11.5-17.5); White Blood Count 7.6 K/mm3 (4.8-10.8)
[2020-09-20 20:42] LABS: Iron 104 ug/dL (37-170)
[2020-09-20 20:51] LABS: Total Iron Binding Capacity 296 ug/dL (265-497)
[2020-09-20 21:19] LABS: Ferritin 81.6 ng/ml (11.1-264)
== END ==
PROVIDERS: Visit Provider Physician Assistant
DX: M25.552 Pain in left hip (principal); R06.02 Shortness of breath
CPT/HCPCS: 82728; 83540; 83550; 85025

== ENCOUNTER → 2020-09-29 15:03 | Outpatient (CLI) | payer MEDICARE, SELFPAY ==
--- NOTE | 2020-09-29 15:03 | CA_ITS ---
APPROVED REPORT EXAM: Comprehensive 2D, Doppler, and color-flow Echocardiogram Cardiac Rehabilitation Program Director: Demetrice Eric CRT Ht: 5 ft 6 in Wt: 216lbs BSA: 2.07 BP: 126/88 mmHg Indications: Shortness of Breath, Hypertension/HDD 2D Dimensions LVOT 1.92 cm (M/F) 1.5-2.5 M-Mode Dimensions RVDd 2.47 cm (0.9-2.6) LA Diam 3.12 cm (1.9-4.0) LVDd 3.94 cm (3.5-5.7) Ao Diam 3.55 cm (2.0-3.7) LVDs 2.38 cm (3.5-5.7) IVSd 2.10 cm (0.6-1.1) PWd 0.72 cm (0.6-1.1) EF (Teich) 70.80% FS 39.60% EDV (Teich) 67.50 mL ESV (Teich) 19.70 mL LV Diastology E Decel Time 230.00 (160-240 msec) E/A Ratio 0.95 MED E' 9.20 (< 7 cm/sec) E'/MED E' Ratio 10.34 (>14) LAT E' 7.50 (<10 cm/sec) E/LAT E' Ratio 12.68 (>14) Aortic Valve AI PHT 478.00 ms AO Peak GR. 8.60 mmHg Mitral Valve MV A Velocity 100.00 (40-130 cm/s) E/A Ratio 0.95 MV Decel. Time 230.00 (160-240 ms) Pulmonary Valve PV Peak Velocity 99.00 (50-150 cm/s) Tricuspid Valve TR P. Velocity 185.00 cm/s RAP Estimate 10.00 mmHg RVSP 23.70 mmHg Left Ventricle Left atrium is mildly enlarged, left ventricle is normal size, mild concentric left ventricular hypertrophy, visually estimated ejection fraction 55% with no regional wall motion abnormality, grade 1 diastolic dysfunction seen with tissue Doppler evidence of raise left atrial pressure. Right Ventricle Right atrium and right ventricle are normal size and contractility. Aortic Valve Aortic valve is minimally thickened and fibrosed, there is trace aortic insufficiency. There is no aortic stenosis. Mitral Valve Mitral valve is grossly normal, there is mild mitral regurgitation Tricuspid Valve Tricuspid valve is grossly normal, there is mild tricuspid regurgitation, tricuspid regurgitation jet velocity is inadequate for calculation of the right ventricular systolic pressure. Pulmonic Valve Pulmonic valve is poorly visualized. Great Vessels Aortic root is normal size. Pericardium No significant pericardial effusion noted. Conclusion 1. Mildly enlarged left atrium, normal left ventricular size, mild concentric left ventricular hypertrophy, visually estimated ejection fraction 55% with no regional wall motion abnormality, grade 1 diastolic dysfunction seen with tissue Doppler evidence of raise left atrial pressure. 2. Trace aortic, mild mitral and tricuspid regurgitation. 3. No significant pericardial effusion noted. Inferior vena cava is normal size with normal inspiratory collapse. Electronically signed by : Ja Lang, 09/30/2020 12:55:16
== END ==
PROVIDERS: PCP Physician Assistant; Visit Provider Physician Assistant
DX: R06.02 Shortness of breath (principal)
CPT/HCPCS: 93306

== ENCOUNTER → 2022-08-15 10:31 | Outpatient (POV) | payer MEDICARE, SELFPAY | PROVIDERS: Visit Provider Dermatology | DX: Z00.00 Encounter for general adult medical examination without abnormal findings (principal) ==

== ENCOUNTER → 2022-12-07 06:52 | Outpatient (CLI) | payer MEDICARE, SELFPAY | PROVIDERS: Visit Provider Nurse Practitioner Family | DX: B35.1 Tinea unguium (principal) | CPT/HCPCS: 87102; 87206; 87220 ==

== ENCOUNTER 2023-08-15 | Emergency (ER) | payer MEDICARE, SELFPAY ==
[2023-08-15 00:01] VITALS: BP 176/77; PULSE 70; RESP 18; TEMP 36.8; O2SAT 95; BMI 33.2
--- NOTE | 2023-08-15 00:09 | HMH.EDGENADL ---
Discharge Plan Disposition Patient Disposition: Home, Self-Care Prescriptions Prescriptions: No Action fluticasone propionate [Flonase Allergy Relief] 50 mcg/actuation spray,suspension 50 mcg INTRANASAL QDAY PRN (Reason: allergies) cholecalciferol (vitamin D3) 25 mcg (1,000 unit) capsule 25 mcg PO DAILY ascorbic acid (vitamin C) 500 mg capsule PO estradiol 0.01 % (0.1 mg/gram) cream 1 appful VAGINAL DAILY PRN (Reason: vaginal dryness) Qty: 42.5 2RF levothyroxine 137 mcg tablet See Rx Instructions .ROUTE .COMPLEX Qty: 90 0RF Dose Instruction: Take 1 tablet by mouth once daily Rx Instructions: Take 1 tablet by mouth once daily triamterene-hydrochlorothiazid 75-50 mg tablet See Rx Instructions .ROUTE .COMPLEX Qty: 45 0RF Dose Instruction: TAKE 1/2 (ONE-HALF) TABLET BY MOUTH IN THE MORNING Rx Instructions: TAKE 1/2 (ONE-HALF) TABLET BY MOUTH IN THE MORNING metoprolol tartrate 50 mg tablet See Rx Instructions .ROUTE .COMPLEX Qty: 90 0RF Dose Instruction: Take 1 tablet by mouth once daily Rx Instructions: Take 1 tablet by mouth once daily oxybutynin chloride 5 mg tablet See Rx Instructions .ROUTE .COMPLEX Qty: 180 0RF Dose Instruction: Take 1 tablet by mouth twice daily Rx Instructions: Take 1 tablet by mouth twice daily zinc 50 mg tablet 50 mg PO DAILY Referrals Follow up/Referrals: Gogo Berry PA [Primary Care Provider] - See instructions Activity Restrictions/Add. Instructions Additional Instructions/Restrictions: Please use enemas and MiraLAX as discussed at home to relieve your large colonic stool burden. Please follow-up with your primary care provider. Please return to the emergency department if you develop any new or worsening symptoms or become concerned for your health. Clinical Impressions Clinical Impression: Acute left flank pain, Constipation, Fecal impaction in rectum Instructions Patient Instructions: DI for Low Back Pain Discharge ED Provider: Fernando Donaldson General Adult HPI General Chief complaint: Back Pain/Injury Stated complaint: Left side lower back pain Time Seen by Provider: 08/15/23 00:05 History of Present Illness HPI narrative: 78-year-old female, history of hypertension, constipation, chronic urinary incontinence, presents with acute on chronic left flank pain. She reports that she sometimes has twinges of pain in her left flank, she has noticed them over the last few months. Tonight she reports she had sudden onset of much more severe pain in the same area. She reports that it was worse with lying down and better with moving around. She reports no history of kidney stones or kidney infection. She denies any new urinary symptoms. She reports that she is chronically incontinent of urine despite a previous urologic procedure to fix incontinence. She reports that she has been constipated and has not had normal bowel movement since last week. She reports no fever at home. Denies any history of cancer, denies any drug use, denies any recent unintentional weight loss. She reports no midline back pain. Denies any numbness, weakness, tingling. Related Data Home Medications Medication Instructions Recorded Confirmed fluticasone propionate 50 50 mcg intranasal QDAY PRN 11/07/17 08/14/23 mcg/actuation nasal allergies spray,suspension (Flonase Allergy Relief) ascorbic acid (vitamin C) 500 mg mg PO 10/13/20 08/14/23 capsule cholecalciferol (vitamin D3) 25 25 mcg PO DAILY 10/13/20 08/14/23 mcg (1,000 unit) capsule zinc 50 mg tablet 50 mg PO DAILY Supplement 10/13/20 08/14/23 Previous Rx's Medication Instructions Recorded estradiol 0.01% (0.1 mg/gram) 1 appful vaginal DAILY PRN vaginal 12/15/21 vaginal cream dryness #42.5 grams levothyroxine 137 mcg tablet See Rx Instructions .Route 06/22/23 .COMPLEX #90 tabs metoprolol tartrate 50 mg tablet See Rx
--- NOTE | 2023-08-15 00:19 | CT_ITS ---
PROCEDURE INFORMATION: Exam: CT Abdomen And Pelvis With Contrast Exam date and time: 08/15/2023 2:19 AM Age: 78 years old Clinical indication: Abdominal pain; Prior surgery; Surgery date: 6+ months; Surgery type: Hysterectomy; Additional info: Acute on chronic left flank pain TECHNIQUE: Imaging protocol: Computed tomography of the abdomen and pelvis with contrast. Radiation optimization: All CT scans at this facility use at least one of these dose optimization techniques: automated exposure control; mA and/or kV adjustment per patient size (includes targeted exams where dose is matched to clinical indication); or iterative reconstruction. Contrast material: ISOVUE; Contrast volume: 75 ml; Contrast route: IV; REPORTING DATA: Count of CT and Cardiac NM exams in prior 12 months: This patient has received 0 known CTs and 0 known cardiac nuclear medicine studies in the 12 months prior to the current study. COMPARISON: [facility] [id number] XR lumbar spine min 4V 10/25/2018 12:23 PM FINDINGS: Diaphragm: Moderate hiatal hernia. Liver: Normal. No mass. Gallbladder and bile ducts: Normal. No calcified stones. No ductal dilation. Pancreas: Normal. No ductal dilation. Spleen: Punctate splenic calcifications. Adrenal glands: Normal. No mass. Kidneys and ureters: Small nonobstructing right kidney nephroliths measuring up to 3 mm. No hydronephrosis. Stomach and bowel: Fecalized terminal ileum. No obstruction. No mucosal thickening. Appendix: No evidence of appendicitis. Intraperitoneal space: Unremarkable. No free air. No significant fluid collection. Vasculature: Unremarkable. No abdominal aortic aneurysm. Lymph nodes: Unremarkable. No enlarged lymph nodes. Urinary bladder: Unremarkable as visualized. Reproductive: Postsurgical changes of hysterectomy. Bones/joints: Degenerative changes, most significant at the left hip. No acute fracture. Soft tissues: Postsurgical changes of ventral abdominal hernia repair. Tiny fat containing umbilical hernia. Benign-appearing lipomatous lesion interposed between the left iliopsoas and pectineus muscles likely representing a lipoma. IMPRESSION: 1. Mild nonobstructing right nephrolithiasis. 2. Fecalized terminal ileum suggestive of delayed transit.
[2023-08-15 00:28] LABS: Microscopic, Urine URINE MICROSCOPIC (MICROSCOPIC)
[2023-08-15 00:29] LABS: Appearance,Urine CLEAR (Clear); Bilirubin,Urine Negative (Negative); Blood, Urine Negative (Negative); Color,Urine YELLOW (Yellow); Glucose,Urine (UA) Negative (Negative); Ketones,Urine Negative (Negative); Leukocyte Esterase,Urine Negative (Negative); Nitrate,Urine Negative (Negative); PH,Urine 6.5 (5.0-8.5); Protein,Urine Negative (Negative); Specific Gravity, Urine 1.025 (1.005-1.030)
[2023-08-15 00:43] LABS: Basophils % 0.4 % (0.1-2.0); Eosinophils # 0.2 K/mm3 (0.0-0.4); Eosinophils % 2.6 % (0.1-12.0); Hematocrit 41.2 % (37.0-47.0); Lymphocytes # 2.2 K/mm3 (0.7-4.5); Lymphocytes % 26.1 % (10-50); Mean Corpuscular Hemoglobin 31.1 pg (27.0-31.2); Mean Corpuscular Volume 91.3 fl (81-99); Mean Platelet Volume 8.5 fl (7.4-10.4); Monocytes # 0.5 K/mm3 (0.1-1.0); Monocytes % 6.3 % (1.7-9.3); Neutrophils # 5.3 K/mm3 (1.8-7.8); Neutrophils % 64.5 % (37.0-80.0); Platelet Count 243 K/mm3 (142-424); Red Blood Count 4.51 M/mm3 (4.20-5.40); Red Cell Distribution Width 13.6 % (11.5-17.5); White Blood Count 8.2 K/mm3 (4.8-10.8)
[2023-08-15 00:48] LABS: Chloride 103 mmol/L (98-107); Potassium 3.7 mmoL/L (3.5-5.1); Sodium 140 mmol/L (136-145)
[2023-08-15 00:50] LABS: Alanine Aminotransferase 33 U/L (12-78); Aspartate Amino Transferase 38 U/L (14-36); Blood Urea Nitrogen 30 mg/dl (7-17); Creatinine Clearance Estimated 66 mL/min (50-200); Estimated Glomerular Filt Rate 60 ml/min (>60); GFR (African American) 73 ML/MIN (>60)
[2023-08-15 00:51] LABS: Albumin Level 4.3 g/dl (3.5-5.0); Albumin/Globulin Ratio 1.4 (1.1-1.8); Alkaline Phosphatase 67 U/L (38-126); Anion Gap 9.7 mEq/L (5-15); Bilirubin,Total 0.2 mg/dl (0.2-1.3); Calcium 9.5 mg/dl (8.4-10.2); Carbon Dioxide 31 mmol/L (22.0-30.0); Glucose 121 mg/dl (74-100); Total Protein,Serum 7.3 g/dl (6.3-8.2)
[2023-08-15 00:58] LABS: Bacteria,Urine 1+ /lpf; Mucus,Urine 1+ /lpf
[2023-08-15 02:06] VITALS: BP 132/74; PULSE 80; RESP 17; TEMP 36.7; O2SAT 98
== END 2023-08-15 02:07 | disposition home or self-care (01) ==
PROVIDERS: Emergency Provider Emergency Medicine; PCP Physician Assistant
DX: R10.32 Left lower quadrant pain (principal); M54.59 Other low back pain; K56.41 Fecal impaction; R39.81 Functional urinary incontinence; I51.89 Other ill-defined heart diseases; I10 Essential (primary) hypertension
CPT/HCPCS: 74177; 80053; 81001; 85025; 96374; 99284; Q9967

== ENCOUNTER 2023-08-17 07:50 | Emergency (ER) | payer MEDICARE, SELFPAY ==
[2023-08-17 07:51] VITALS: BP 197/97; PULSE 82; RESP 19; TEMP 36.8; O2SAT 97; BMI 32.2
[2023-08-17 08:05] VITALS: BMI 32.2
[2023-08-17 08:10] LABS: Microscopic, Urine URINE MICROSCOPIC (MICROSCOPIC)
--- NOTE | 2023-08-17 08:10 | HMH.EDGENADL ---
Discharge Plan Disposition Patient Disposition: Home, Self-Care Prescriptions Prescriptions: No Action fluticasone propionate [Flonase Allergy Relief] 50 mcg/actuation spray,suspension 50 mcg INTRANASAL QDAY PRN (Reason: allergies) cholecalciferol (vitamin D3) 25 mcg (1,000 unit) capsule 25 mcg PO DAILY ascorbic acid (vitamin C) 500 mg capsule PO estradiol 0.01 % (0.1 mg/gram) cream 1 appful VAGINAL DAILY PRN (Reason: vaginal dryness) Qty: 42.5 2RF levothyroxine 137 mcg tablet See Rx Instructions .ROUTE .COMPLEX Qty: 90 0RF Dose Instruction: Take 1 tablet by mouth once daily Rx Instructions: Take 1 tablet by mouth once daily triamterene-hydrochlorothiazid 75-50 mg tablet See Rx Instructions .ROUTE .COMPLEX Qty: 45 0RF Dose Instruction: TAKE 1/2 (ONE-HALF) TABLET BY MOUTH IN THE MORNING Rx Instructions: TAKE 1/2 (ONE-HALF) TABLET BY MOUTH IN THE MORNING metoprolol tartrate 50 mg tablet See Rx Instructions .ROUTE .COMPLEX Qty: 90 0RF Dose Instruction: Take 1 tablet by mouth once daily Rx Instructions: Take 1 tablet by mouth once daily oxybutynin chloride 5 mg tablet See Rx Instructions .ROUTE .COMPLEX Qty: 180 0RF Dose Instruction: Take 1 tablet by mouth twice daily Rx Instructions: Take 1 tablet by mouth twice daily zinc 50 mg tablet 50 mg PO DAILY Referrals Follow up/Referrals: Gogo Berry PA [Primary Care Provider] - See instructions Activity Restrictions/Add. Instructions Additional Instructions/Restrictions: Call your family doctor to establish care for this visit to the emergency department and schedule follow-up within 48 hours to ensure improvement. If you have any worsening of your condition or any other concerning signs or symptoms, return to the emergency department or your primary care doctor for further evaluation. Bowel regimen as described. 1 laxative followed by 10 capfuls of MiraLAX in water or Pedialyte, followed by 1 more laxative. This should provide adequate cleanout. Take iron once every 2 to 3 days instead of every day to prevent constipation. Clinical Impressions Clinical Impression: Acute constipation, Abdominal pain Discharge ED Provider: Rc Napier General Adult [facility] General Chief complaint: PAIN Stated complaint: lower back pain, no accident Time Seen by Provider: 08/17/23 07:56 Mode of Arrival: Family Vehicle Limitations: No Limitations Description of Symptoms (Recalled from ER Triage Doc. by RN): Pt c/o constipation issues, LLQ ABD & Left lower back pain. She History of Present Illness HPI narrative: 78-year-old female history of upper thyroidism, anemia on iron supplementation, chronic constipation, urinary incontinence currently on oxybutynin presenting with constipation. Patient states that she has been constipated for a few days. Her had a stroke recently, she has been his caregiver and has not been taking care of herself, as she thinks she should. Started having abdominal pain a few days prior to arrival, came to the emergency department a couple days prior to this visit. Was discharged home with bowel regimen after negative hematologic and imaging work-up, other than 8.5 cm stool ball in rectum and pancolonic stool burden. Patient has taken 1 capful of MiraLAX for the past 2 days and has done about a enemas total with small amount of liquid output. Patient currently having left lower quadrant and left flank pain does not radiate, mild to moderate in intensity, not made better or worse by anything. Related Data Home Medications Medication Instructions Recorded Confirmed fluticasone propionate 50 50 mcg intranasal QDAY PRN 11/07/17 08/14/23 mcg/actuation nasal allergies spray,suspension (Flonase Allergy Relief) ascorbic acid (vitamin C) 500 mg mg PO 10/13/20 08/14/23 capsule cholecalciferol (vitamin D3) 25 25 mcg PO DAILY 10/13/20
[2023-08-17 08:13] LABS: Appearance,Urine CLEAR (Clear); Bilirubin,Urine Negative (Negative); Blood, Urine Negative (Negative); Color,Urine YELLOW (Yellow); Glucose,Urine (UA) Negative (Negative); Ketones,Urine Negative (Negative); Leukocyte Esterase,Urine TRACE (Negative); Nitrate,Urine Negative (Negative); PH,Urine 6.5 (5.0-8.5); Protein,Urine Negative (Negative); Specific Gravity, Urine 1.025 (1.005-1.030)
--- NOTE | 2023-08-17 09:00 | PC.NURSE ---
Pt is in the bathroom to use enema. Pt understands to use bathroom call light if she needs assistance.
[2023-08-17 09:06] LABS: Alanine Aminotransferase 28 U/L (12-78); Albumin Level 4.2 g/dl (3.5-5.0); Albumin/Globulin Ratio 1.4 (1.1-1.8); Alkaline Phosphatase 53 U/L (38-126); Anion Gap 15.1 mEq/L (5-15); Aspartate Amino Transferase 35 U/L (14-36); Bilirubin,Total 0.6 mg/dl (0.2-1.3); Blood Urea Nitrogen 20 mg/dl (7-17); Calcium 9.3 mg/dl (8.4-10.2); Carbon Dioxide 26 mmol/L (22.0-30.0); Chloride 102 mmol/L (98-107); Creatinine Clearance Estimated 66 mL/min (50-200); Estimated Glomerular Filt Rate 69 ml/min (>60); GFR (African American) 84 ML/MIN (>60); Glucose 131 mg/dl (74-100); Potassium 4.1 mmoL/L (3.5-5.1); Sodium 139 mmol/L (136-145); Total Protein,Serum 7.2 g/dl (6.3-8.2)
[2023-08-17 09:07] LABS: Lactic Acid 1.2 mmol/L (0.7-2.1)
[2023-08-17 09:09] LABS: Basophils % 0.3 % (0.1-2.0); Eosinophils # 0.2 K/mm3 (0.0-0.4); Eosinophils % 2.9 % (0.1-12.0); Hematocrit 41.4 % (37.0-47.0); Hemoglobin 14.3 g/dL (12.2-16.2); Lymphocytes # 1.9 K/mm3 (0.7-4.5); Lymphocytes % 27.2 % (10-50); Mean Corpuscular HGB Conc 34.5 g/dL (31.8-35.4); Mean Corpuscular Hemoglobin 31.4 pg (27.0-31.2); Mean Platelet Volume 8.5 fl (7.4-10.4); Monocytes # 0.4 K/mm3 (0.1-1.0); Neutrophils # 4.3 K/mm3 (1.8-7.8); Neutrophils % 63.5 % (37.0-80.0); Platelet Count 234 K/mm3 (142-424); Red Blood Count 4.55 M/mm3 (4.20-5.40); Red Cell Distribution Width 13.7 % (11.5-17.5); White Blood Count 6.8 K/mm3 (4.8-10.8)
[2023-08-17 09:33] LABS: Bacteria,Urine Trace /lpf
--- NOTE | 2023-08-17 09:47 | PC.NURSE ---
Rounded on pt, she has passed a lot of gas and the mineral oil enema contents. Reports the pain is a little better. She is laying on her left side.
--- NOTE | 2023-08-17 10:43 | PC.NURSE ---
soap suds enema administered at this time, pt laying on L side in bed-holding enema
--- NOTE | 2023-08-17 11:35 | PC.NURSE ---
Rounded on pt, reports she has had small amount of stool post soap suds enema. notified
--- NOTE | 2023-08-17 11:35 | PC.NURSE ---
pt going back and forth to bathroom not hooked up for vitals
[2023-08-17 12:55] VITALS: BP 165/88; PULSE 78; RESP 18; TEMP 36.7; O2SAT 97
== END 2023-08-17 13:04 | disposition home or self-care (01) ==
PROVIDERS: Emergency Provider Emergency Medicine; PCP Physician Assistant
DX: R10.32 Left lower quadrant pain (principal); M54.59 Other low back pain; E03.9 Hypothyroidism, unspecified; D50.9 Iron deficiency anemia, unspecified; R32 Unspecified urinary incontinence; K59.00 Constipation, unspecified
CPT/HCPCS: 80053; 81001; 83605; 85025; 96374; 99284; J2405

== ENCOUNTER 2024-02-01 17:53 | Outpatient (CLI) | payer MEDICARE, SELFPAY | END 2024-02-01 23:59 | disposition home or self-care (01) | LOC: LAB.DROPOF 17:54 | PROVIDERS: PCP Physician Assistant; Visit Provider Physician Assistant | DX: N39.0 Urinary tract infection, site not specified (principal); B96.4 Proteus (mirabilis) (morganii) as the cause of diseases classified elsewhere | CPT/HCPCS: 87086 ==

== ENCOUNTER 2024-07-29 16:33 | Outpatient (CLI) | payer MEDICARE, SELFPAY ==
[2024-07-29 17:41] LABS: Chol/HDL Ratio 3.5 (1-3.5); Cholesterol 155 mg/dl (140-200); HDL Cholesterol 44 mg/dl (40-60); Triglycerides 136 mg/dl (30-150); VLDL Cholesterol 27 mg/dL (0-40)
[2024-07-29 18:12] LABS: Thyroid Stimulating Hormone 0.91 uIU/mL (0.465-4.68)
[2024-07-31 11:17] LABS: Triiodothyronine (T3) Free 2.2 pg/mL (2.0-4.4)
== END 2024-07-29 23:59 | disposition home or self-care (01) ==
LOC: LAB.DROPOF 16:34
PROVIDERS: PCP Nurse Practitioner Family; Visit Provider Nurse Practitioner Family
DX: E03.9 Hypothyroidism, unspecified (principal)
CPT/HCPCS: 80061; 84443; 84481

== ENCOUNTER 2024-12-04 16:27 | Outpatient (CLI) | payer MEDICARE, SELFPAY ==
--- NOTE | 2024-12-04 16:47 | XR_ITS ---
PROCEDURE INFORMATION: Exam: XR Right Shoulder Exam date and time: 12/04/2024 4:49 PM Age: 79 years old Clinical indication: Pain; Shoulder; Right; Additional info: Right shoulder pain TECHNIQUE: Imaging protocol: Radiologic exam of the right shoulder. Views: 2 or more views. COMPARISON: [facility] CT cervical spine wo con 12/22/2018 3:25 PM FINDINGS: Bones/joints: Prominent osteophyte formation of the inferior medial humeral head. No acute fracture. Mild right AC joint osteoarthritis. Soft tissues: Normal. IMPRESSION: 1. No evidence for acute fracture. 2. Prominent osteophyte formation of the inferior medial humeral head.
--- NOTE | 2024-12-04 16:47 | XR_ITS ---
PROCEDURE INFORMATION: Exam: XR Right Hand Exam date and time: 12/04/2024 4:49 PM Age: 79 years old Clinical indication: Pain; Hand; Right; Additional info: Right hand pain TECHNIQUE: Imaging protocol: Radiologic exam of the right hand. Views: 3 or more views. 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 No acute fracture. Hyperflexion at the PIP joint little finger noted. Soft tissues: Normal. IMPRESSION: 1. No evidence for acute fracture. 2. Severe osteoarthritis of the 1st carpometacarpal joint. 3. Hyperflexion at the PIP joint little finger noted.
--- NOTE | 2024-12-04 16:47 | XR_ITS ---
PROCEDURE INFORMATION: Exam: XR Right Wrist Exam date and time: 12/04/2024 4:49 PM Age: 79 years old Clinical indication: Pain; Wrist; Right; Additional info: Right wrist pain TECHNIQUE: Imaging protocol: Radiologic exam of the right wrist. Views: 3 or more views. COMPARISON: CR (WRIST PA, WRIST, WRIST PA) 04/29/2019 8:51 AM FINDINGS: Bones/joints: Severe osteoarthritis 1st carpometacarpal joint. No acute fracture. Soft tissues: Normal. IMPRESSION: 1. No evidence for acute fracture. 2. Severe osteoarthritis 1st carpometacarpal joint.
--- NOTE | 2024-12-04 16:47 | XR_ITS ---
PROCEDURE INFORMATION: Exam: XR Left Hand Exam date and time: 12/04/2024 4:49 PM Age: 79 years old Clinical indication: Pain; Hand; Left; Additional info: Left hand pain TECHNIQUE: Imaging protocol: Radiologic exam of the left hand. Views: 3 or more views. COMPARISON: CR (HAND PA, HAND, HAND PA) 04/29/2019 8:51 AM FINDINGS: Bones/joints: Severe osteoarthritis 1st carpometacarpal joint. No acute fracture. Soft tissues: Normal. IMPRESSION: 1. No evidence for acute fracture. 2. Severe osteoarthritis 1st carpometacarpal joint.
--- NOTE | 2024-12-04 16:47 | XR_ITS ---
PROCEDURE INFORMATION: Exam: XR Left Wrist Exam date and time: 12/04/2024 4:49 PM Age: 79 years old Clinical indication: Pain; Wrist; Left; Additional info: Left wrist pain TECHNIQUE: Imaging protocol: Radiologic exam of the left wrist. Views: 3 or more views. COMPARISON: CR (WRIST PA, WRIST, WRIST PA) 04/29/2019 8:51 AM FINDINGS: Bones/joints: Severe osteoarthritis of the 1st carpometacarpal joint. No acute fracture. Soft tissues: Normal. IMPRESSION: 1. No evidence for acute fracture. 2. Severe osteoarthritis 1st carpometacarpal joint.
[2024-12-04 17:49] LABS: Basophils % 0.2 % (0.1-2.0); Eosinophils # 0.1 K/mm3 (0.0-0.4); Eosinophils % 1.1 % (0.1-12.0); Hematocrit 41.8 % (37.0-47.0); Hemoglobin 13.5 g/dL (12.2-16.2); Lymphocytes # 1.6 K/mm3 (0.7-4.5); Lymphocytes % 15.3 % (10-50); Mean Corpuscular HGB Conc 32.3 g/dL (31.8-35.4); Mean Corpuscular Hemoglobin 28.6 pg (27.0-31.2); Mean Corpuscular Volume 88.6 fl (81-99); Monocytes # 0.8 K/mm3 (0.1-1.0); Monocytes % 7.3 % (1.7-9.3); Neutrophils % 75.6 % (37.0-80.0); Platelet Count 334 K/mm3 (142-424); Red Blood Count 4.72 M/mm3 (4.20-5.40); Red Cell Distribution Width 13.2 % (11.5-17.5); White Blood Count 10.6 K/mm3 (4.8-10.8)
[2024-12-04 18:16] LABS: Erythrocyte Sedimentation Rate 16 mm/hr (0-30)
[2024-12-04 19:05] LABS: Alanine Aminotransferase 24 U/L (12-78); Albumin Level 4.2 g/dl (3.5-5.0); Albumin/Globulin Ratio 1.7 (1.1-1.8); Alkaline Phosphatase 58 U/L (38-126); Anion Gap 10.7 mEq/L (5-15); Aspartate Amino Transferase 29 U/L (14-36); Bilirubin,Total 0.5 mg/dl (0.2-1.3); Blood Urea Nitrogen 24 mg/dl (7-17); Calcium 9.5 mg/dl (8.4-10.2); Carbon Dioxide 27 mmol/L (22.0-30.0); Chloride 105 mmol/L (98-107); Estimated Glomerular Filt Rate 80 ml/min (>60); GFR (African American) 97 ML/MIN (>60); Globulin 2.5 g/dL (1.3-3.2); Glucose 112 mg/dl (74-100); Potassium 3.7 mmoL/L (3.5-5.1); Sodium 139 mmol/L (136-145); Total Protein,Serum 6.7 g/dl (6.3-8.2)
[2024-12-04 19:18] LABS: C-Reactive Protein 26.2 mg/L (0-4)
[2024-12-04 19:41] LABS: HIV Combo NEGATIVE (Negative)
[2024-12-04 20:01] LABS: Hepatitis C Ab Qual. W/ RFX NEGATIVE (Negative)
== END 2024-12-04 23:59 | disposition home or self-care (01) ==
LOC: RAD 16:29
PROVIDERS: PCP Nurse Practitioner Family; Visit Provider Nurse Practitioner Family
DX: M25.511 Pain in right shoulder (principal); M25.532 Pain in left wrist; M79.641 Pain in right hand; M25.531 Pain in right wrist; M79.642 Pain in left hand; Z11.4 Encounter for screening for human immunodeficiency virus [HIV]; M19.90 Unspecified osteoarthritis, unspecified site; Z11.59 Encounter for screening for other viral diseases; M25.50 Pain in unspecified joint
CPT/HCPCS: 73030; 73110; 73130; 80053; 84550; 85025; 85651; 86140; 86803; 87389

== ENCOUNTER 2025-05-14 14:08 | Outpatient (CLI) | payer MEDICARE, SELFPAY | END 2025-05-14 23:59 | disposition home or self-care (01) | LOC: LAB.DROPOF 05-15 11:11 | PROVIDERS: PCP Nurse Practitioner Family; Visit Provider Nurse Practitioner Family | DX: R30.9 Painful micturition, unspecified (principal); R39.89 Other symptoms and signs involving the genitourinary system; R30.0 Dysuria; R10.2 Pelvic and perineal pain; R31.9 Hematuria, unspecified | CPT/HCPCS: 87086; 87088; 87186 ==

== ENCOUNTER 2025-06-16 10:55 | Outpatient (CLI) | payer MEDICARE, SELFPAY | END 2025-06-16 23:59 | LOC: LAB.DROPOF 06-17 09:46 | PROVIDERS: PCP Nurse Practitioner Family; Visit Provider Nurse Practitioner Family | DX: N39.0 Urinary tract infection, site not specified (principal) | CPT/HCPCS: 87086; 87088 ==